=== PATIENT | female | born 1965 | race Asian ===

== ENCOUNTER 2017-03-19 15:20 | Emergency (ER) | payer MEDICAID ==
[~2017-03-19] VITALS: Ht 160 cm; Wt 64.4 kg
[2017-03-19 16:22] LABS: Basophils # (auto) 0.1 uL; Basophils % (auto) 0.5 % (0.0-2.0); Eosinophils # (auto) 0.3 uL; Eosinophils % (auto) 2.6 % (0.0-7.0); Hematocrit 41.5 % (36.0-46.0); Hemoglobin 13.7 g/dL (12.2-16.2); Lymphocytes # (auto) 2.2 uL; Lymphocytes % (auto) 18.4 % (10.0-50.0); Mean Corpuscular Hemoglobin 28.8 pg (28.0-32.0); Mean Corpuscular Volume 87.3 fL (80.0-100.0); Mean Platelet Volume 7.4 fL (6.9-10.8); Monocytes # (auto) 0.4 uL; Monocytes % (auto) 3.2 % (0.0-12.0); Neutrophils # (auto) 8.9 uL; Neutrophils % (auto) 75.3 % (37.0-80.0); Nucleated Red Blood Cells % 0.2 %; Platelet Count (auto) 293 10^3/uL (140-450); Red Cell Distribution Width 13.8 % (11.8-14.3); White Blood Cell 11.8 10^3/uL (4.4-10.8)
[2017-03-19 16:45] LABS: Albumin 4.2 g/dL (3.4-5.0); BUN/Creatinine Ratio 23.9; Bilirubin, Total 0.5 mg/dL (0.2-1.0); Calcium 8.9 mg/dL (8.5-10.1); Potassium 3.3 mmol/L (3.5-5.1); Total Protein 8.2 g/dL (6.4-8.2)
[2017-03-19] MEDS ORDERED: PROMETHAZINE HCL 25 MG/ML 1ML IV ONE (20:45)
[2017-03-19] MEDS ORDERED: POTASSIUM CHL 20 Meq TABLET PO ONE (22:30)
[2017-03-19 22:42] VITALS: BP 96/89
== END 2017-03-19 22:49 | disposition home or self-care (01) ==
LOC: ER 15:33
DX: K52.9 Noninfective gastroenteritis and colitis, unspecified (principal)
CPT/HCPCS: 36415; 80053; 85025; 96374; 99284; J2550

== ENCOUNTER 2020-08-01 08:50 | Emergency (ER) | payer MEDICAID ==
[~2020-08-01] VITALS: Ht 154.9 cm; Wt 63.5 kg
[2020-08-01 10:36] VITALS: BP 113/73
== END 2020-08-01 10:40 | disposition home or self-care (01) ==
LOC: ER 08:50
DX: R51.9 Headache, unspecified (principal); I10 Essential (primary) hypertension; Z77.22 Contact with and (suspected) exposure to environmental tobacco smoke (acute) (chronic)
CPT/HCPCS: 70450; 93005

== ENCOUNTER 2021-01-10 11:29 | Emergency (ER) | payer MEDICAID ==
[~2021-01-10] VITALS: Ht 160 cm; Wt 65.3 kg
[2021-01-10 12:13] VITALS: BP 132/90
== END 2021-01-10 12:41 | disposition home or self-care (01) ==
LOC: ER 11:29
DX: G44.209 Tension-type headache, unspecified, not intractable (principal); E78.5 Hyperlipidemia, unspecified; I10 Essential (primary) hypertension
CPT/HCPCS: 70450

== ENCOUNTER 2024-07-10 08:10 | Inpatient (IN) | payer MEDICAID ==
[~2024-07-10] VITALS: Ht 160 cm; Wt 69.3 kg
[2024-07-10] MEDS: METOCLOPRAMIDE HCL 5MG/ml INJ 2ml VIAL IV ONE (08:30)
--- NOTE | 2024-07-10 08:48 | DVH ---
INDICATION: left arm tingling TECHNIQUE: Frontal view of the chest. COMPARISON: None FINDINGS: . The heart and mediastinal contours are grossly unremarkable. There is no evidence of pleural disea se. The lungs are clear. The bony structures of the chest are intact without fracture. IMPRESSION: 1. No evidence of acute disease.
--- NOTE | 2024-07-10 08:51 | DVH ---
EXAM: CT HEAD WITHOUT CONTRAST INDICATION: Left arm tingling TECHNIQUE: CT of the head without intravenous contrast. Coronal and sagittal reformatted images are s ubmitted. Radiation Dose : 1. Head: CT Dose: CTDI volume is 55.19 mGy. Dose-length product is 977.33 mGy*cm The dose indicators for CT are the volume Computed Tomography (CT) Dose Index (CTDIvol) and the Dose Length Product (DLP), and are measured in units of mGy and mGy-cm, respectively. These indicators are not patient dose, but values generated from the CT scanner acquisition factors. The report includes radiation exposure data for exposures received during this examination. All CT scans at this medical facility are performed using dose modulation techniques as appropriate to a performed exam including the following: Automated exposure control was utilized; adjustment of the MA and/or KV according to patient size; and use of iterative reconstruction technique. COMPARISON: HEAD WITHOUT CONTRAST on DOS: 01/10/21 FINDINGS: There is no evidence of acute intracranial hemorrhage, extra-axial collection, mass effect, midline s hift, herniation or hydrocephalus. The ventricles, sulci and cisterns are age appropriate. The rose-white differentiation is intact. The visualized paranasal sinuses and mastoid air cells are clear. No depressed calvarial fracture. The surrounding soft tissues are unremarkable. IMPRESSION: 1. No evidence of acute intracranial abnormality.
--- NOTE | 2024-07-10 08:55 | ED.PDOC ---
HPI (NEURO) HPI Comments 59 y.o female with PMHx of HTN and hyperlipidemia, presents to the ED for a chief complaint of left sided numbness associated with a left sided headache that started 2 days ago. Patient describes headache as a burning aching sensation that is constant, non radiating and has no alleviating factors. Patient reports similar symptoms about 2 months ago but never followed up with PCP. Patient denies any tingling sensation, facial droops, nausea, vomiting, diarrhea, confusion, difficult speech, unsteady gait, vision changes, SOB or chest pain. Chief Complaint: Headache Time Seen by MD: 08:15 Primary Care Provider: ALEM Reviewed Notes: Nurses Notes, Medications, Allergies Information Source: Patient Mode of Arrival: Ambulatory Severity: Moderate Headache Severity: Moderate Timing: Days (2) Duration: Since onset Headache Quality: Aching Headache Location: Other (left sided ) Onset: At rest Circumstances: Spontaneous Symptoms: Numbness History of: Hypertension Modifying factors: Nothing Associated Signs and Symptoms: Headache, Numbness Past Medical History PAST MEDICAL HISTORY: High Lipids, HTN Surgical History: Denies all surgeries BRAND RECORDER History: Denies all BRAND RECORDER Hx Family History Family History: Reviewed,noncontributory to illness Social History Smoker: Secondhand Alcohol: Denies ETOH Use Drugs: Denies Drug Use Lives In: Home Constitutional: denies: chills, diaphoresis, fatigue, fever, malaise, sweats, weakness, others EENTM: denies: blurred vision, double vision, ear bleeding, ear discharge, ear drainage, ear pain, ear ringing, eye pain, eye redness, hearing loss, mouth pain, mouth swelling, nasal discharge, nose bleeding, nose congestion, nose pain, photophobia, tearing, throat pain, throat swelling, voice changes, others Respiratory: denies: cough, hemoptysis, orthopnea, SOB at rest, shortness of breath, SOB with excertion, stridor, wheezing, others Cardiovascular: denies: chest pain, dizzy spells, diaphoresis, Dyspnea on exert ion, edema, irregular heart beat, left arm pain, lightheadedness, palpitations, PND, syncope, others Gastrointestinal: denies: abdomen distended, abdominal pain, blood streaked bowels, constipated, diarrhea, dysphagia, difficulty swallowing, hematemesis, melena, nausea, poor appetite, poor fluid intake, rectal bleeding, rectal pain, vomiting, others Genitourinary: denies: abnormal vagina bleeding, burning, dyspareunia, dysuria, flank pain, frequency, hematuria, incontinence, pain, , vagina discharge, urgency, others Neurological: reports: headache, left sided numbness; denies: dizziness, fainting, left sided weakness, numbness, paresthesia, pre-existing deficit, right sided numbness, right sided weakness, seizure, speech problems, tingling, tremors, weakness, others Musculoskeletal: denies: back pain, gout, joint pain, joint swelling, muscle pain, muscle stiffness, neck pain, others Integumetry: denies: bruises, change in color, change in hair/nails, dryness, laceration, lesions, lumps, rash, wounds, others Allergic/Immunocompromised: denies: Difficulty Healing, Frequent Infections, Hives, Itching, others Hematologic/Lymphatic: denies: anemia, blood clots, easy bleeding, easy bruising, swollen glands, others Endocrine: denies: excessive hunger, excessive sweating, excessive thirst, excessive urination, flushing, intolerance to cold, intolerance to heat, unexplained weight gain, unexplained weight loss, others Psychiatric: denies: anxiety, bipolar disorder, depression, hopeless, panic disorder, schizophrenia, sleepless, suicidal, others All Other Systems: Reviewed and Negative Physical Exam General Appearance: No Apparent Distress, Normal HEENT: NOT DONE Neck: Normal Inspection Respiratory: No Accessory Muscle Use, No Respiratory Distress, Normal Breath Sounds Cardiovascular: Normal Peripheral Pulses, Regular Rate/Rhythm Breast Exam: Deferred Gastrointestinal: NOT DONE Genitalia: Deferred Pelvic: Deferred Rectal: Deferred Extremities: Normal inspection Neurologic: Alert, Normal Affect, R/L Numbness (left sided arm and leg ), Sensory Deficit (left sided arm and leg ) Cerebellar Function: Normal Reflexes: NOT DONE Skin: Dry, Normal Color Lymphatic: NOT DONE Was a procedure done? Was a procedure done?: No Differential Diagnosis (SZ) Seizure: N/A CVA: CVA, Electrolyte Imbalance, TIA Headache: Cluster, Migraine, Subarachnoid Hemorrhage, Trigeminal Neuralgia X-Ray, Labs, Meds, VS Vital Signs Date Time Temp Pulse Resp B/P (MAP) Pulse Ox O2 Delivery O2 Flow Rate FiO2 07/10/24 08:20 70 07/10/24 08:13 98.0 70 20 116/70 (85) 95 98.0 Lab Test 07/10/24 08:44 07/10/24 08:23 07/10/24 08:17 Range/Units White Blood Count 6.6 4.4-10.8 10^3/uL Red Blood Count 4.72 4.0-5.20 10^6/uL Hemoglobin 14.1 12.2-16.2 g/dL Hematocrit 42.0 36.0-46.0 % Mean Corpuscular Volume 89.0 80.0-100.0 fL Mean Corpuscular Hemoglobin 29.9 28.0-32.0 pg Mean Corpuscular Hemoglobin Concent 33.5 32.0-36.0 g/dL Red Cell Distribution Width 13.6 11.8-14.3 % Platelet Count 275 140-450 10^3/uL Mean Platelet Volume 7.6 6.9-10.8 fL Neutrophils (%) (Auto) 56.9 37.0-80.0 % Lymphocytes (%) (Auto) 34.2 10.0-50.0 % Monocytes (%) (Auto) 5.9 0.0-12.0 % Eosinophils (%) (Auto) 2.1 0.0-7.0 % Basophils (%) (Auto) 0.9 0.0-2.0 % Neutrophils # (Auto) 3.7 1.6-8.6 10 ^3/uL Lymphocytes # (Auto) 2.2 0.4-5.4 10 ^3/uL Monocytes # (Auto) 0.4 0-1.3 10 ^3/uL Eosinophils # (Auto) 0.1 0-0.8 10 ^3/uL Basophils # (Auto) 0.1 0-0.2 10 ^3/uL Nucleated Red Blood Cells 0.1 % Sodium Level 140 136-145 mmol/L Potassium Level 3.6 3.5-5.1 mmol/L Chloride Level 103 98-107 mmol/L Carbon Dioxide Level 29 20-31 mmol/L Anion Gap 8 5-15 Blood Urea Nitrogen 15 9-23 mg/dL Creatinine 0.79 0.550-1.02 mg/dL Glomerular Filtration Rate Calc 85 >90 mL/min BUN/Creatinine Ratio 19.0 10.0-20.0 Serum Glucose 116 H 74-106 mg/dL Calcium Level 9.8 8.7-10.4 mg/dL Troponin I High Sensitivity < 3 L </=34 ng/L Urine Color Light-yellow Yellow Urine Clarity Clear Clear Urine pH 7.0 5.0-9.0 Urine Specific [place] 1.013 1.001-1.035 Urine Protein Negative Negative Urine Ketones Negative Negative Urine Blood Trace H Negative /uL Urine Nitrite Negative Negative Urine Bilirubin Negative Negative Urine Urobilinogen Normal Negative mg/dL Urine Leukocyte Esterase 1+ Negative /uL Urine RBC 1 0 - 4 /hpf Urine Microscopic WBC 4 0-5 /HPF Urine Squamous Epithelial Cells Few <5 /hpf Urine Bacteria Few H None Seen /hpf Urine Mucus Few None Seen Urine Yeast (Budding) Occasional None Seen /hpf Urine Glucose Normal Normal mg/dL POC Glucose 130 H 70-106 mg/dl EXAM: CT HEAD WITHOUT CONTRAST INDICATION: Left arm tingling TECHNIQUE: CT of the head without intravenous contrast. Coronal and sagittal reformatted images are submitted. Radiation Dose : 1. Head: CT Dose: CTDI volume is 55.19 mGy. Dose-length product is 977.33 mGy*cm The dose indicators for CT are the volume Computed Tomography (CT) Dose Index (CTDIvol) and the Dose Length Product (DLP), and are measured in units of mGy and mGy-cm, respectively. These indicators are not patient dose, but values generated from the CT scanner acquisition factors. The report includes radiation exposure data for exposures received during this examination. All CT scans at this medical facility are performed using dose modulation techniques as appropriate to a performed exam including the following: Automated exposure control was utilized; adjustment of the MA and/or KV according to patient size; and use of iterative reconstruction technique. COMPARISON: HEAD WITHOUT CONTRAST on DOS: 01/10/21 FINDINGS: There is no evidence of acute intracranial hemorrhage, extra-axial collection, mass effect, midline shift, herniation or hydrocephalus. The ventricles, sulci and cisterns are age appropriate. The rose-white differentiation is intact. The visualized paranasal sinuses and mastoid air cells are clear. No depressed calvarial fracture. The surrounding soft tissues are unremarkable. IMPRESSION: 1. No evidence of acute intracranial abnormality. INDICATION: left arm tingling TECHNIQUE: Frontal view of the chest. COMPARISON: None FINDINGS: . The heart and mediastinal contours are grossly unremarkable. There is no evidence of pleural disease. The lungs are clear. The bony structures of the chest are intact without fracture. IMPRESSION: 1. No evidence of acute disease. Time of 1ST Reevaluation: 08:50 Reevaluation 1ST: Unchanged Patient Education/Counseling: Diagnosis, Treatment, Prognosis Family Education/Counseling: No Family Present Departure 1 Departure Time of Disposition: 09:46 (Patient with left-sided facial and arm numbness tingling. Patient is out of the window for any acute intervention. We will admit patient for further workup and expert consultation) Impression: Primary Impression: Numbness and tingling of left side of face Additional Impression: Numbness and tingling of left arm and leg Disposition: 09 ADMITTED INPATIENT Admit to: Med Surg Condition: Serious e-Prescriptions No Active Prescriptions or Reported Meds Critical Care Note Critical Care Time?: Yes Critical care comment: Concern for CVA Authorized and Performed by: Lia Phillips MD Total critical care time: Approximately 33 minutes Due to a high probability of clinically significant, life threatening deterioration, the patient required my highest level of preparedness to intervene emergently and I personally spent this critical care time directly and personally managing the patient. This critical care time included obtaining a history; examining the patient; pulse oximetry; ordering and review of studies; arranging urgent treatment with development of a management plan; evaluation of patient's response to treatment; frequent reassessment; and, discussions with other providers. This critical care time was performed to assess and manage the high probability of imminent, life-threatening deterioration that could result in multi-organ failure. It was exclusive of separately billable procedures and treating other patients and teaching time. Please see my other sections and the rest of the note for further information on patient assessment and treatment. Stability Stability form required: No I personally scribed for LIA PHILLIPS MD ([email or web address]) on 07/10/24 at 08:55. Electronically submitted by M[facility] Villatoro ([facility] I personally scribed for LIA PHILLIPS MD ([email or web address]) on 07/10/24 at 09:39. Electronically submitted by Mireya Villatoro ([facility] LIA PHILLIPS MD Jul 10, 2024 08:55
[2024-07-10 08:57] LABS: Basophils # (auto) 0.1 10 ^3/uL (0-0.2); Basophils % (auto) 0.9 % (0.0-2.0); Eosinophils # (auto) 0.1 10 ^3/uL (0-0.8); Eosinophils % (auto) 2.1 % (0.0-7.0); Hemoglobin 14.1 g/dL (12.2-16.2); Lymphocytes # (auto) 2.2 10 ^3/uL (0.4-5.4); Lymphocytes % (auto) 34.2 % (10.0-50.0); Mean Corpuscular Hemoglobin 29.9 pg (28.0-32.0); Mean Corpuscular Hgb Conc. 33.5 g/dL (32.0-36.0); Monocytes # (auto) 0.4 10 ^3/uL (0-1.3); Monocytes % (auto) 5.9 % (0.0-12.0); Neutrophils # (auto) 3.7 10 ^3/uL (1.6-8.6); Neutrophils % (auto) 56.9 % (37.0-80.0); Nucleated Red Blood Cells % 0.1 %; Platelet Count (auto) 275 10^3/uL (140-450); Red Blood Cells 4.72 10^6/uL (4.0-5.20); Red Cell Distribution Width 13.6 % (11.8-14.3); White Blood Cell 6.6 10^3/uL (4.4-10.8)
[2024-07-10 09:06] LABS: Chloride 103 mmol/L (98-107); Potassium 3.6 mmol/L (3.5-5.1); Sodium 140 mmol/L (136-145)
[2024-07-10 09:07] LABS: Anion Gap 8 (5-15); Carbon Dioxide 29 mmol/L (20-31)
[2024-07-10 09:08] LABS: Calcium 9.8 mg/dL (8.7-10.4)
[2024-07-10 09:13] LABS: Blood Urea Nitrogen 15 mg/dL (9-23); Glucose 116 mg/dL (74-106)
[2024-07-10 09:16] LABS: Urine Bacteria FEW /hpf (None Seen); Urine Blood TRACE /uL (Negative); Urine Budding Yeast OCCASIONAL /hpf (None Seen); Urine Clarity Clear (Clear); Urine Color Light-Yellow (Yellow); Urine Mucus FEW (None Seen); Urine Protein, UAD Negative (Negative); Urine Specific Gravity 1.013 (1.001-1.035); Urine Squamous Epithelial Cell FEW /hpf (<5); Urine Urobilinogen Normal (Negative); Urine WBC 4 /HPF (0-5)
[2024-07-10 09:50] VITALS: PULSE 61; RESP 17; O2SAT 99
[2024-07-10] MEDS: SODIUM CHLORIDE 0.9% 1,000 ML IV ONE (09:50)
[2024-07-10] MEDS ORDERED: AMLO1TAB21 PO (11:28)
[2024-07-10] MEDS ORDERED: ATOR20TA50 PO (11:28)
[2024-07-10] MEDS ORDERED: DOCUSATE SOD 100 MG CAP PO PRN ×2 (11:30→11:45)
[2024-07-10] MEDS ORDERED: NITROGLYCERIN 0.4 MG SL TAB SL PRN ×2 (11:30→11:45)
[2024-07-10] MEDS ORDERED: ACETAMINOPHEN 325 MG TAB PO PRN (11:30)
[2024-07-10] MEDS ORDERED: HYDROcodone-ACET 5/325MG TAB PO PRN ×2 (11:30→11:45)
[2024-07-10] MEDS ORDERED: MORPHINE SULFATE INJ 2 MG/ml SYRG IV PRN ×2 (11:30→11:45)
[2024-07-10] MEDS ORDERED: ONDANSETRON HCL 4 MG/2 ML VIAL IV PRN ×2 (11:30→11:45)
[2024-07-10] MEDS: ACETAMINOPHEN 325 MG TAB PO ONE (11:44)
--- NOTE | 2024-07-10 11:53 | DVHHP2 ---
History of Present Illness Reason for Visit: Left arm numbness and tingling History of Present Illness Bo Escoto is a 59-year-old female with past medical history of hypertension, and hyperlipidemia who comes in for numbness tingling to left side of head and left arm. Patient states she has been experiencing numbness and tingling to the left side of her face/head for about 2 months. She states she also began experiencing intermittent heaviness of her head. Then 2 days ago she began having left arm numbness and tingling that prompted her to come to the hospital. Denies any blurred vision, difficulty swallowing, talking, or hemiplegia. Cardiovascular: HTN, hyperipidemia Past Surgical History: Other (oophorectomy) Smoke: No ALCOHOL: none Drugs: None Lives: with Family Domestic Violence: Neg Review of Systems Constitutional: No: Fever, Chills, Sweats, Weakness, Malaise, Other Eyes: No: Pain, Vision change, Conjunctivae inflammation, Eyelid inflammation, Other, Redness ENT: No: Ear pain, Ear discharge, Nose pain, Nose discharge, Nose congestion, Mouth pain, Mouth swelling, Throat pain, Throat swelling, Other Respiratory: No: Cough, Dry, Shortness of breath, SOB with excertion, Wheezing, Hemoptysis, Pleuritic Pain, Sputum, Wheezing, Other Cardiovascular: No: Chest Pain, Palpitations, Orthopnea, Paroxysmal Noc. Dys pnea, Edema, Lt Headedness, Other Gastrointestinal: No: Nausea, Vomiting, Abdominal Pain, Diarrhea, Constipation, Melena, Hematochezia, Other Genitourinary: No Dysuria, No Frequency, No Incontinence, No Hematuria, No Retention, No Other Musculoskeletal: No: other, neck pain, shoulder pain, arm pain, back pain, hand pain, leg pain, foot pain Skin: No: Rash, Lesions, Jaundice, Bruising, Other Neurological: Numbness (left arm and left side of head); No: Weakness, Incoordination, Change in speech, Confusion, Seizures, Other Allergies: Coded Allergies: NO KNOWN ALLERGIES (Unverified , 11/14/12) Medications Current Medications Medications Dose Ordered Sig/Macario Route Start Time Stop Time Status Last Admin Dose Admin Sodium Chloride 10 ml Q8HR IV 07/10/24 14:00 UNV Acetaminophen/ Hydrocodone Bitart 1 tab Q4HP PRN PO 07/10/24 11:30 UNV Ondansetron HCl 4 mg Q4HP PRN IV 07/10/24 11:30 UNV Docusate Sodium 100 mg BIDPRN PRN PO 07/10/24 11:30 UNV Acetaminophen 650 mg Q6HP PRN PO 07/10/24 11:30 UNV Nitroglycerin 0.4 mg Q5MINP PRN SL 07/10/24 11:30 UNV Morphine Sulfate 2 mg Q30M PRN IV 07/10/24 11:30 UNV Atorvastatin Calcium 20 mg HS PO 07/10/24 22:00 UNV Patient Own Medication 1 tab DAILY PO 07/11/24 10:00 UNV Exam Vital Signs Vital Signs Date Time Temp Pulse Resp B/P (MAP) Pulse Ox O2 Delivery O2 Flow Rate FiO2 07/10/24 09:50 61 17 99 Room Air* 0 21 07/10/24 09:50 98.1 113/67 (82) 98.1 General Appearance: Alert, Oriented X3, Cooperative HEENT: Atraumatic Respiratory: Clear to auscultation, Normal air movement Cardiovascular: Regular rate, Normal S1, Normal S2 Abdominal: Normal bowel sounds, Soft, No tenderness Extremities: No clubbing, No cyanosis, No edema, Normal pulses, No tenderness/swelling Skin: No rashes, No breakdown, No significant lesion Neuro: Normal gait, Normal speech, Strength at 5/5 X4 ext, Normal tone, Other (C/O left sided headache, head feel heavy, numbness tingling to left side of head and left arm) Psych/Mental Status: Mental status NL, Mood NL Labs/Xrays Labs Test 07/10/24 08:44 07/10/24 08:23 07/10/24 08:17 Range/Units White Blood Count 6.6 4.4-10.8 10^3/uL Red Blood Count 4.72 4.0-5.20 10^6/uL Hemoglobin 14.1 12.2-16.2 g/dL Hematocrit 42.0 36.0-46.0 % Mean Corpuscular Volume 89.0 80.0-100.0 fL Mean Corpuscular Hemoglobin 29.9 28.0-32.0 pg Mean Corpuscular Hemoglobin Concent 33.5 32.0-36.0 g/dL Red Cell Distribution Width 13.6 11.8-14.3 % Platelet Count 275 140-450 10^3/uL Mean Platelet Volume 7.6 6.9-10.8 fL Neutrophils (%) (Auto) 56.9 37.0-80.0 % Lymphocytes (%) (Auto) 34.2 10.0-50.0 % Monocytes (%) (Auto) 5.9 0.0-12.0 % Eosinophils (%) (Auto) 2.1 0.0-7.0 % Basophils (%) (Auto) 0.9 0.0-2.0 % Neutrophils # (Auto) 3.7 1.6-8.6 10 ^3/uL Lymphocytes # (Auto) 2.2 0.4-5.4 10 ^3/uL Monocytes # (Auto) 0.4 0-1.3 10 ^3/uL Eosinophils # (Auto) 0.1 0-0.8 10 ^3/uL Basophils # (Auto) 0.1 0-0.2 10 ^3/uL Nucleated Red Blood Cells 0.1 % Sodium Level 140 136-145 mmol/L Potassium Level 3.6 3.5-5.1 mmol/L Chloride Level 103 98-107 mmol/L Carbon Dioxide Level 29 20-31 mmol/L Anion Gap 8 5-15 Blood Urea Nitrogen 15 9-23 mg/dL Creatinine 0.79 0.550-1.02 mg/dL Glomerular Filtration Rate Calc 85 >90 mL/min BUN/Creatinine Ratio 19.0 10.0-20.0 Serum Glucose 116 H 74-106 mg/dL Calcium Level 9.8 8.7-10.4 mg/dL Troponin I High Sensitivity < 3 L </=34 ng/L Urine Color Light-yellow Yellow Urine Clarity Clear Clear Urine pH 7.0 5.0-9.0 Urine Specific [place] 1.013 1.001-1.035 Urine Protein Negative Negative Urine Ketones Negative Negative Urine Blood Trace H Negative /uL Urine Nitrite Negative Negative Urine Bilirubin Negative Negative Urine Urobilinogen Normal Negative mg/dL Urine Leukocyte Esterase 1+ Negative /uL Urine RBC 1 0 - 4 /hpf Urine Microscopic WBC 4 0-5 /HPF Urine Squamous Epithelial Cells Few <5 /hpf Urine Bacteria Few H None Seen /hpf Urine Mucus Few None Seen Urine Yeast (Budding) Occasional None Seen /hpf Urine Glucose Normal Normal mg/dL POC Glucose 130 H 70-106 mg/dl EXAM: CT HEAD WITHOUT CONTRAST FINDINGS: There is no evidence of acute intracranial hemorrhage, extra-axial collection, mass effect, midline shift, herniation or hydrocephalus. The ventricles, sulci and cisterns are age appropriate. The rose-white differentiation is intact. The visualized paranasal sinuses and mastoid air cells are clear. No depressed calvarial fracture. The surrounding soft tissues are unremarkable. IMPRESSION: 1. No evidence of acute intracranial abnormality. Chest X-Ray FINDINGS: . The heart and mediastinal contours are grossly unremarkable. There is no evidence of pleural disease. The lungs are clear. The bony structures of the chest are intact without fracture. IMPRESSION: 1. No evidence of acute disease. Assessment/Plan Assessment/Plan Assessment: Numbness and tingling of left arm and leg, Numbness and tingling of left side of face, R/O Stroke, Hypertension, Hyperlipidemia, Plan: Admit to Tele, MRI of brain, ECHO, Consider Neurology consult, Home medications reconciled, Plan discussed with: Patient My Orders Orders - CADENCE ZAMORA Procedure Category Date Status Time Admit ADMIT 07/10/24 Transmitted 11:24 Code Status CODE 07/10/24 Transmitted 11:24 2 Gm Sodium Diet DIET 07/10/24 Transmitted Lunch Sodium Chloride Lock PHA 07/10/24 Logged (Saline Lock Ns) 14:00 Hydrocodone-Acet PHA 07/10/24 Logged 5/325mg Tab ([place] 11:30 Ondansetron Hcl PHA 07/10/24 Logged (Zofran) 11:30 Docusate Sodium PHA 07/10/24 Logged Capsule (Colace 11:30 Complete Blood Count LAB 07/11/24 Verified 04:00 Comprehensive LAB 07/11/24 Verified Metabolic Panel 04:00 Echo 2d Mode Cardiac US 07/10/24 Logged DOP 11:24 Condition: Serious BILL 07/10/24 In Process 11:24 Acetaminophen Tablet PHA 07/10/24 Logged (Tylenol Tablet) 11:30 Nitroglycerin PHA 07/10/24 Logged Sublingual (Ntrostat 11:30 Morphine Sulfate PHA 07/10/24 Logged Injection 11:30 Stat Ekg For Chest BILL 07/10/24 In Process Pain 11:24 Notify Of Changes BILL 07/10/24 In Process From Base 11:24 [employer] Operator For BILL 07/10/24 In Process 24 Hours 11:24 Emergency Dysrhythmia [facility] 07/10/24 In Process Protocol 11:24 Rhythm Strips Once [facility] 07/10/24 In Process Every Shift 11:24 Oxygen By Nasal RT 07/10/24 Transmitted Cannula 11:24 Atorvastatin (Lipitor) PHA 07/10/24 Logged 22:00 (Nf) Amlodipine PHA 07/11/24 Logged Besylate 10:00 Brain Head Wo Contrast MRI 07/10/24 Verified 11:28 Date of Service: Jul 10, 2024 Billing Provider: CADENCE ZAMORA Common Visit Codes: [id number] INP/OBS CARE (MOD) CADENCE ZAMORA Jul 10, 2024 11:53
[2024-07-10] MEDS ORDERED: SODIUM CHLOR 0.9% PF (SALINE LOCK) 10ML VIAL/SYR IV SCH (14:00)
[2024-07-10] MEDS: SODIUM CHLOR 0.9% PF (SALINE LOCK) 10ML VIAL/SYR IV SCH (14:04)
--- NOTE | 2024-07-10 14:38 | ECG ---
[facility] Test Date: 2024-07-10 Test Time: 08:20:29 Pat Name: RICHARD MOTA Department: ER Room: [address] [place] [address] Gender: F [employer] Bench: GP : 1965 Requested By: LIA PHILLIPS Order Number: [id number] Reading MD: Jeffry Montoya Measurements Intervals Sharon Rate: 70 P: 61 IA: 142 QRS: 75 QRSD: 113 T: 43 QT: 415 QTc: 448 Interpretive Statements Sinus rhythm Borderline intraventricular conduction delay Borderline T wave abnormalities Baseline wander in lead(s) V2,V5 Electronically Signed On 07-12-2024 21:00:10 PDT by Jeffry Montoya Please click the below link to view image of tracing.
--- NOTE | 2024-07-10 17:09 | DVH ---
PROCEDURE: MRI BRAIN HEAD WO CONTRAST INDICATION: Stroke EXAM DATE: 07/10/2024 04:26 PM COMPARISON: None TECHNIQUE: MRI of the brain without intravenous contrast. FINDINGS: Diffusion weighted images of the brain demonstrate no evidence of acute infarction. There is no evidence of acute intracranial hemorrhage, extra-axial collection, mass effect, midline s hift, herniation or hydrocephalus. The ventricles, sulci and cisterns appear age appropriate. The signal intensities of the brain parenchyma are within normal limits. There are no signal abnormalities on the susceptibility weighted sequences. The major vascular flow voids are present. The visualized paranasal sinuses and mastoid air cells are clear. The surrounding soft tissues and o sseous structures are unremarkable. IMPRESSION: 1. No evidence of acute infarction, intracranial hemorrhage, mass effect or hydrocephalus. HS:Y
[2024-07-10] MEDS: ATORVASTATIN 20 MG TAB PO SCH (22:00)
[2024-07-10 23:09] VITALS: BP 123/65; PULSE 65; RESP 20; TEMP 98; O2SAT 96
[2024-07-10 23:57] VITALS: BP 123/65; PULSE 65; RESP 20; TEMP 98; O2SAT 96
[2024-07-11] VITALS (8 sets, daily range): BP systolic 106–134; BP diastolic 60–85; PULSE 59–75; RESP 16–19; TEMP 97.6–98; O2SAT 94–100
[2024-07-11 06:56] LABS: Chloride 105 mmol/L (98-107); Potassium 3.5 mmol/L (3.5-5.1); Sodium 142 mmol/L (136-145)
[2024-07-11 06:57] LABS: Anion Gap 10 (5-15); Calcium 9.3 mg/dL (8.7-10.4); Carbon Dioxide 27 mmol/L (20-31)
[2024-07-11 07:00] LABS: Alkaline Phosphatase 73 U/L (46-116)
[2024-07-11 07:02] LABS: Aspartate Aminotransferase 17 U/L (13-40); BUN/Creatinine Ratio 23.7 (10.0-20.0); Blood Urea Nitrogen 18 mg/dL (9-23); Glucose 108 mg/dL (74-106)
[2024-07-11 07:03] LABS: Total Protein 7.1 g/dL (5.7-8.2)
[2024-07-11 07:04] LABS: Albumin 4.4 g/dL (3.2-4.8); Bilirubin, Total 0.7 mg/dL (0.2-1.0)
[2024-07-11 07:07] LABS: Basophils # (auto) 0.1 10 ^3/uL (0-0.2); Basophils % (auto) 0.7 % (0.0-2.0); Eosinophils # (auto) 0.2 10 ^3/uL (0-0.8); Eosinophils % (auto) 2.2 % (0.0-7.0); Lymphocytes # (auto) 2.5 10 ^3/uL (0.4-5.4); Lymphocytes % (auto) 33.1 % (10.0-50.0); Mean Corpuscular Hemoglobin 29.5 pg (28.0-32.0); Mean Corpuscular Hgb Conc. 33.4 g/dL (32.0-36.0); Mean Corpuscular Volume 88.6 fL (80.0-100.0); Monocytes # (auto) 0.4 10 ^3/uL (0-1.3); Monocytes % (auto) 5.6 % (0.0-12.0); Neutrophils # (auto) 4.3 10 ^3/uL (1.6-8.6); Neutrophils % (auto) 58.4 % (37.0-80.0); Nucleated Red Blood Cells % 0.1 %; Platelet Count (auto) 259 10^3/uL (140-450); Red Cell Distribution Width 13.5 % (11.8-14.3); White Blood Cell 7.4 10^3/uL (4.4-10.8)
[2024-07-11 07:17] LABS: Alanine Aminotransferase 17 U/L (7-40)
[2024-07-11 09:16] LABS: Cholesterol 198 mg/dL (< 200); LDL Cholesterol 135 mg/dL (< 100); Triglycerides 160 mg/dL (< 150)
[2024-07-11 09:17] LABS: HDL Cholesterol 50 mg/dL (40-59)
[2024-07-11] MEDS ORDERED: PATIENTS OWN MEDICATION (Amlodipine Besylate 1 TAB) PO SCH (10:00)
[2024-07-11] MEDS: CLOPIDOGREL BISULFATE 75 MG TAB PO SCH (10:00)
[2024-07-11] MEDS: ASPirin 81 mg TAB PO SCH (10:00)
[2024-07-11] MEDS: amLODIPine BESYLATE 5 MG TAB PO SCH (10:24)
--- NOTE | 2024-07-11 15:05 | DVHPNRES ---
Progress Note Date Seen: Jul 11, 2024 Resident Creating Document: DIDI PATEL RESIDENT Has the PT tested + for MRSA If YES, has PT been informed?: No Medical Necessity Reason Pt with a Central, PICC or Fol: No Subjective Review of Systems This is a 59-year-old female with past medical history of hypertension and hyperlipidemia who presented to the ED due to numbness and tingling sensation in the temporal aspect of the head and left arm. The patient states that recently she started feeling numbness sensation in the left temporal and occipital area of the head associated with the occasional numbness sensation of the left upper extremity and right lower extremity as well. Patient denied numbness or tingling sensation in the face and also denies any weakness, motor or sensory deficits at this time. Upon admission, CBC and BNP was grossly unremarkable, troponins came back negative and urinalysis came back positive suggesting UTI. Initial chest x-ray was grossly unremarkable. CT scan of the head was performed showing no evidence of acute intracranial abnormalities an MRI of the head ruled out ischemia or hemorrhage. Patient was admitted for further assessment and management of possible TIA/stroke. Patient seen and examined at bedside. Patient is alert and oriented in person, place and time. Patient is hemodynamically stable. Upon my examination the patient reports that occasionally she feels numbness sensation in the left temporal area of the head associated with the occasional left upper extremity tingling sensation. Patient denies any motor or sensory deficits at this time. Neurological exam was performed there is symmetric motor force on all four extremities and no sensory abnormalities in any of the extremities or face. Patient was started on aspirin 81 mg daily, clopidogrel 75 mg daily and atorvastatin 80 mg daily for possible TIA. Patient might be also coursing with a possible migraine with aura. We will place a neurology consult to get further assessment and management. ROS Constitutional: Denies weight loss, fever and chills. HEENT: Denies changes in vision and hearing. Respiratory: Denies shortness of breath and cough Cardiovascular: Denies chest discomfort or palpitations GI: Denies abdominal pain, nausea, vomiting and diarrhea. : Denies dysuria and urinary frequency. Musculoskeletal: Denies myalgias and joint pain Skin: Denies rash and pruritus. Neurological: Denies dizziness, headache, vision or hearing problems Objective vital signs Vital Sign Date Time Temp Pulse Resp B/P (MAP) Pulse Ox O2 Delivery O2 Flow Rate FiO2 4/15/25 11:36 97.7 62 17 117/60 (79) 98 97.7 07/10/24 23:57 Room Air* 0 21 Total Intake and Output 07/10/24 07/10/24 07/11/24 15:00 23:00 07:00 Intake Total 1000 ml 0 ml Balance 1000 ml 0 ml medications Current Medications Medications Dose Ordered Sig/Macario Route Start Time Stop Time Status Last Admin Dose Admin Acetaminophen 650 mg Q6HP PRN PO 07/10/24 11:30 Sodium Chloride 10 ml Q8HR IV 07/10/24 14:00 07/11/24 14:21 10 ML Ondansetron HCl 4 mg Q4HP PRN IV 07/10/24 11:45 Morphine Sulfate 2 mg Q30M PRN IV 07/10/24 11:45 Acetaminophen/ Hydrocodone Bitart 1 tab Q4HP PRN PO 07/10/24 11:45 Docusate Sodium 100 mg BIDPRN PRN PO 07/10/24 11:45 Nitroglycerin 0.4 mg Q5MINP PRN SL 07/10/24 11:45 Amlodipine Besylate 2.5 mg DAILY PO 07/11/24 10:00 07/11/24 10:24 2.5 MG Atorvastatin Calcium 80 mg HS PO 07/11/24 22:00 UNV Aspirin 81 mg DAILY PO 07/11/24 10:00 UNV Clopidogrel Bisulfate 75 mg DAILY PO 07/11/24 10:00 UNV Examination Physical Examination General: Patient alert and oriented in person, place and time. Patient following commands. HEENT: Normocephalic, atraumatic, moist mucous membranes Respiratory/pulmonary: Clear lungs bilaterally, no associated crackles or wheezes. Cardiovascular: Normal heart sounds S1 and S2 with no associated murmurs Abdomen: Abdomen nondistended, there is no pain to palpation in any of the abdominal quadrants, no palpable masses. Extremities: There is no peripheral edema present at the lower extremities. Peripheral Pulses: 3+ Radial (R). 3+ Radial (L). 3+ Dorsalis pedis (R). 3+ Dorsalis pedis(L) Skin: No rashes or pruritus, there is no sacral edema present at this time. Neurological: Intact cranial nerves with no focal neurologic deficits laboratory and microbiology Laboratory Tests 07/11/24 05:37 Test 07/11/24 05:37 Range/Units Serum Glucose 108 H 74-106 mg/dL Problem List/Assessment/Plan Problem List/Assessment/Plan Assessment/Plan Ruled out ischemic/hemorrhagic stroke Possible TIA Possible migraine with Aura -patient reports numbness and tingling sensation in the left temporal occipital region of the head associated with left upper extremity tingling -CT scan of the head showed no evidence of acute intracranial abnormalities -MRI of the brain showed no evidence of acute ischemic or hemorrhagic stroke -drugs came back negative -patient was started on aspirin 81 mg daily -start clopidogrel 75 mg daily for 21 days -start atorvastatin 80 mg daily -neurology consult was placed UTI -U/A suggestive of UTI -Start IV ceftriaxone Primary hypertension -start amlodipine 2.5 mg daily -monitor blood pressure closely Dyslipidemia -ordered lipid panel -start atorvastatin 80 mg daily Goals of care discussed with the patient at bedside for >25min, FULL CODE Plan discussed with Dr. Hammer Plan discussed with: Patient My Orders My Orders Orders - DIDI PATEL Procedure Category Date Status Time Drug Screen LAB 07/11/24 Logged 08:49 Atorvastatin (Lipitor) PHA 07/11/24 Logged 22:00 Aspirin Tablet PHA 07/11/24 Logged 10:00 Clopidogrel Bisulfate PHA 07/11/24 Logged (Plavix) 10:00 * Neurology Consult CONS 07/11/24 Verified 14:45 Date of Service: Jul 11, 2024 Billing Provider: REX HAMMER MD Common Visit Codes: [id number] INP/OBS CARE(HIGH) DIDI PATEL RESIDENT Jul 11, 2024 15:05 REX HAMMER MD Jul 11, 2024 15:49
[2024-07-11] MEDS: cefTRIAXone 1GM/50ML D5W 50 ML IV SCH (16:40)
[2024-07-11 17:22] LABS: Amphetamine Screen, Urine Neg (NEGATIVE); Barbiturate Scree,Urine Neg (NEGATIVE); Benzodiazephine Screen, Urine Neg (NEGATIVE); Cannabinoid Screen, Urine Neg (NEGATIVE); Cocaine Screen, Urine Neg (NEGATIVE); Opiate Scree,Urine Neg (NEGATIVE); Phencyclidine Screen, Urine Neg (NEGATIVE)
[2024-07-11] MEDS: ATORVASTATIN 20 MG TAB PO SCH (21:39)
--- NOTE | 2024-07-11 22:15 | DVHINCON2 ---
Date of service: Jul 11, [address] Peralta Reason for Consultation Possible TIA, possible migraine with aura History of Present Illness Ms. Escoto is a 59 years old right-handed female with a history of hypertension, dyslipidemia, she came to the [facility] on 07/10/2024 with a chief complaint of left-sided numbness. At this time, she was alert, fully oriented, but she was a poor historian. After long time spent with her, I obtained the following history Starting two days prior to this hospitalization, she has mild burning pain in the left side of her head, numbness in the left arm than leg, but she denies associated weakness. In the hospital, her problem has improved In [id number], she was one similar event, which resolved, without medical attention She was relates other similar events, but she was not able to further specify the symptoms She also reports heaviness in her head sometimes She did not seek medical attention till recently when she started to discuss with her family doctor and blood tests were obtained She denies a history of headache or head pain UDS, 07/11/2024: Negative Urinalysis, 07/10/2024: WBC: 4, urine leukocyte esterase: 1+ CBC, 07/11/2024: Unremarkable HGB A1c, 07/11/2024: 5.8 TG/HDL/LDL/HDL, 07/11/2024: 160/198/135/50 CMP, 07/11/2024: Unremarkable MRI head, 07/10/2024: No evidence of acute infarction, intracranial hemorrhage, mass effect or hydrocephalus. Past Medical History Hypertension, dyslipidemia Past Surgical History Oophorectomy Family History: FH: cancer G8 MOTHER G8 FATHER Family History Hypertension, diabetes, cancer, no headache Social History She has no history of smoking, alcohol or drug abuse Allergies: Coded Allergies: NO KNOWN ALLERGIES (Unverified , 11/14/12) Home Meds Reported Medications Atorvastatin Calcium (ATORVASTATIN CALCIUM) 20 Mg Tab, 20 MG PO HS 07/10/24 Amlodipine Besylate (Amlodipine Besylate) 2.5 Mg Tab, 1 TAB PO DAILY 07/10/24 Current Medications Current Medications Medications (Trade) Dose Ordered Sig/Macario Route PRN Reason Start Time Stop Time Status Last Admin Patient Own Medication 1 tab DAILY PO 07/11/24 10:00 07/10/24 11:36 DC Amlodipine Besylate (Norvasc Tablet) 2.5 mg DAILY PO 07/11/24 10:00 07/11/24 10:24 Atorvastatin Calcium (Lipitor) 80 mg HS PO 07/11/24 22:00 07/11/24 21:39 Aspirin 81 mg DAILY PO 07/11/24 10:00 Clopidogrel Bisulfate (Plavix) 75 mg DAILY PO 07/11/24 10:00 Ceftriaxone Sodium 50 ml @ 100 mls/hr DAILY@09 IV 07/11/24 15:15 07/11/24 16:40 Review of Systems As above, the other systems are negative Vital Signs Vital Signs Date Time Temp Pulse Resp B/P (MAP) Pulse Ox O2 Delivery O2 Flow Rate FiO2 07/11/24 21:00 97.9 68 17 117/79 (92) 96 97.9 07/10/24 23:57 Room Air* 0 21 Physical Exam GENERAL EXAM: General: the patient is well developed and nourished. No acute distress. HEENT: Normocephalic, neck is supple, no carotid bruits. No mass RESPIRATORY: Normal respiratory effort with symmetrical lung expansion. Lungs clear to auscultation. CARDIOVASCULAR: Regular rate and rhythm with no murmurs. S1, S2. ABDOMEN: Soft, nontender, normal bowel sound NEUROLOGICAL: MENTAL STATUS: Awake and alert. Oriented to person, place, time and general circumstances. Able to give personal history SPEECH, LANGUAGE, HIGHER CORTICAL FUNCTION: no aphasia or dysathria. CRANIAL NERVES: #2: Intact visual carlson to confrontation. The optic discs were sharp #3,4,6: Pupils are equal, round and reactive. EOMs full and conjugate. No nystagmus. #5: Facial sensation intact in all three divisions bilaterally. Mandibular strength intact. #7: Facial muscles symmetrical and strength intact. #8: Hearing grossly normal to voice. #9,10: Uvula and soft palate rise in the midline. Swallow and voice are normal. #11: Trapezius and sternomastoid strength intact bilaterally. #12: Tongue midline. No fasciculations or atrophy. SENSATION: Sensation to touch and pinprick is normal. MOTOR: Normal tone in the upper and lower extremity. Normal muscle bulk. No fasciculations. No abnormal movements or posturing. Muscle strength of the major groups in the upper extremities is 5/5. Muscle strength of the major groups in the lower extremities is 5/5. REFLEXES: Deep tendon reflexes are symmetrical. No pathological reflexes. CEREBELLAR/COORDINATION: Finger to nose and heel to choudhary are normal bilaterally. GAIT/STATION: deferred Labs/Diagnostic Data Labs Test 07/11/24 16:58 07/11/24 05:37 07/10/24 08:44 07/10/24 08:23 Range/Units Urine Opiates Screen Neg NEGATIVE Urine Fentanyl Screen Neg NEGATIVE Urine Barbiturates Screen Neg NEGATIVE Urine Phencyclidine Screen Neg NEGATIVE Urine Amphetamines Screen Neg NEGATIVE Urine Benzodiazepines Screen Neg NEGATIVE Urine Cocaine Screen Neg NEGATIVE Urine Cannabinoids Screen Neg NEGATIVE White Blood Count 7.4 4.4-10.8 10^3/uL Red Blood Count 4.40 4.0-5.20 10^6/uL Hemoglobin 13.0 12.2-16.2 g/dL Hematocrit 39.0 36.0-46.0 % Mean Corpuscular Volume 88.6 80.0-100.0 fL Mean Corpuscular Hemoglobin 29.5 28.0-32.0 pg Mean Corpuscular Hemoglobin Concent 33.4 32.0-36.0 g/dL Red Cell Distribution Width 13.5 11.8-14.3 % Platelet Count 259 140-450 10^3/uL Mean Platelet Volume 7.9 6.9-10.8 fL Neutrophils (%) (Auto) 58.4 37.0-80.0 % Lymphocytes (%) (Auto) 33.1 10.0-50.0 % Monocytes (%) (Auto) 5.6 0.0-12.0 % Eosinophils (%) (Auto) 2.2 0.0-7.0 % Basophils (%) (Auto) 0.7 0.0-2.0 % Neutrophils # (Auto) 4.3 1.6-8.6 10 ^3/uL Lymphocytes # (Auto) 2.5 0.4-5.4 10 ^3/uL Monocytes # (Auto) 0.4 0-1.3 10 ^3/uL Eosinophils # (Auto) 0.2 0-0.8 10 ^3/uL Basophils # (Auto) 0.1 0-0.2 10 ^3/uL Nucleated Red Blood Cells 0.1 % Sodium Level 142 136-145 mmol/L Potassium Level 3.5 3.5-5.1 mmol/L Chloride Level 105 98-107 mmol/L Carbon Dioxide Level 27 20-31 mmol/L Anion Gap 10 5-15 Blood Urea Nitrogen 18 9-23 mg/dL Creatinine 0.76 0.550-1.02 mg/dL Glomerular Filtration Rate Calc 89 >90 mL/min BUN/Creatinine Ratio 23.7 H 10.0-20.0 Serum Glucose 108 H 74-106 mg/dL Hemoglobin A1c 5.8 H <5.7 % A1C Calcium Level 9.3 8.7-10.4 mg/dL Total Bilirubin 0.7 0.2-1.0 mg/dL Aspartate Amino Transferase (AST) 17 13-40 U/L Alanine Aminotransferase (ALT) 17 7-40 U/L Alkaline Phosphatase 73 46-116 U/L Total Protein 7.1 5.7-8.2 g/dL Albumin 4.4 3.2-4.8 g/dL Triglycerides Level 160 H < 150 mg/dL Cholesterol Level 198 < 200 mg/dL LDL Cholesterol 135 H < 100 mg/dL HDL Cholesterol 50 40-59 mg/dL Troponin I High Sensitivity < 3 L </=34 ng/L Urine Color Light-yellow Yellow Urine Clarity Clear Clear Urine pH 7.0 5.0-9.0 Urine Specific [place] 1.013 1.001-1.035 Urine Protein Negative Negative Urine Ketones Negative Negative Urine Blood Trace H Negative /uL Urine Nitrite Negative Negative Urine Bilirubin Negative Negative Urine Urobilinogen Normal Negative mg/dL Urine Leukocyte Esterase 1+ Negative /uL Urine RBC 1 0 - 4 /hpf Urine Microscopic WBC 4 0-5 /HPF Urine Squamous Epithelial Cells Few <5 /hpf Urine Bacteria Few H None Seen /hpf Urine Mucus Few None Seen Urine Yeast (Budding) Occasional None Seen /hpf Urine Glucose Normal Normal mg/dL Test 07/10/24 08:17 Range/Units POC Glucose 130 H 70-106 mg/dl Assessment Left head pain, left paresthesia, MRI ruled out acute stroke/chronic stroke Rule out partial seizure Plan/Recommendation Monitoring Supportive treatment Telemetry EEG Antiplatelet agent is not recommended from neurologic point of view More recommendation per clinical course Prognosis: Poor This medical document was created using an electronic medical record system with [employer] system. Although this document has been carefully reviewed, there may still be some phonetic and typographical errors. These areas are purely typographical due to imperfections of the software programs, and do not reflect any compromise in the patient's medical care. Plan discussed with: Patient, Other CRISTÓBAL MURGUIA MD Jul 11, 2024 22:15
--- NOTE | 2024-07-11 22:46 | DVHSR ---
APPROVED REPORT EXAM: Two-dimensional and M-mode echocardiogram with Doppler and color Doppler. Mitral Valve MitralMitral Stenosis E/A ratio0.02D MVAcm2 LEFT VENTRICLE The left ventricle is normal size. There is normal left ventricular wall thickness. The left ventricle is normal in structure and function. Left ventricle systolic function is normal. The Ejection Fraction is 55-60%. No regional wall motion abnormalities noted. RIGHT VENTRICLE The right ventricle is normal size. There is normal right ventricular wall thickness. The right ventricular systolic function is normal. ATRIA The left atrium size is normal. The right atrium size is normal. The interatrial septum is intact with no evidence for an atrial septal defect. MITRAL VALVE The mitral valve is normal in structure and function. There is no evidence of mitral valve prolapse. There is no mitral valve stenosis. There is no mitral valve regurgitation noted. PULMONIC VALVE The pulmonary valve is normal in structure and function. There is no pulmonic valvular regurgitation. There is no pulmonic valvular stenosis. TRICUSPID VALVE The tricuspid valve is normal in structure and function. There is no tricuspid valve regurgitation noted. There is no tricuspid valve prolapse or vegetation. There is no tricuspid valve stenosis. AORTIC VALVE The aortic valve is normal in structure and function. No aortic regurgitation is present. There is no aortic valvular stenosis. There is no aortic valvular vegetation. GREAT VESSELS The aortic root is normal in size. PERICARDIAL EFFUSION There is a no pericardial effusion. Conclusion There is normal left ventricular wall thickness. The left ventricle is normal in structure and function. Left ventricle systolic function is normal. The Ejection Fraction is 55-60%. There is no gross valvular pathology There is a no pericardial effusion.
[2024-07-12 05:00] VITALS: BP 116/62; PULSE 55; RESP 17; TEMP 97.2; O2SAT 95
[2024-07-12 05:51] LABS: Basophils # (auto) 0.1 10 ^3/uL (0-0.2); Basophils % (auto) 0.8 % (0.0-2.0); Eosinophils # (auto) 0.2 10 ^3/uL (0-0.8); Eosinophils % (auto) 2.6 % (0.0-7.0); Hematocrit 41.1 % (36.0-46.0); Hemoglobin 13.4 g/dL (12.2-16.2); Lymphocytes # (auto) 2.4 10 ^3/uL (0.4-5.4); Lymphocytes % (auto) 37.2 % (10.0-50.0); Mean Corpuscular Hemoglobin 29.1 pg (28.0-32.0); Mean Corpuscular Hgb Conc. 32.6 g/dL (32.0-36.0); Mean Corpuscular Volume 89.2 fL (80.0-100.0); Monocytes # (auto) 0.4 10 ^3/uL (0-1.3); Monocytes % (auto) 5.9 % (0.0-12.0); Neutrophils # (auto) 3.4 10 ^3/uL (1.6-8.6); Neutrophils % (auto) 53.5 % (37.0-80.0); Platelet Count (auto) 256 10^3/uL (140-450); Red Cell Distribution Width 13.4 % (11.8-14.3); White Blood Cell 6.4 10^3/uL (4.4-10.8)
[2024-07-12 06:03] LABS: Chloride 104 mmol/L (98-107); Potassium 3.7 mmol/L (3.5-5.1); Sodium 141 mmol/L (136-145)
[2024-07-12 06:04] LABS: Anion Gap 10 (5-15); Calcium 9.7 mg/dL (8.7-10.4); Carbon Dioxide 27 mmol/L (20-31)
[2024-07-12 06:09] LABS: BUN/Creatinine Ratio 19.5 (10.0-20.0); Blood Urea Nitrogen 15 mg/dL (9-23); Glucose 104 mg/dL (74-106)
[2024-07-12 08:00] VITALS: PULSE 60; PULSE 64; RESP 16; O2SAT 98
[2024-07-12] MEDS ORDERED: ATOR-47 PO (08:45)
[2024-07-12] MEDS ORDERED: NITR-52 PO (08:46)
[2024-07-12 09:00] VITALS: BP 117/70; PULSE 64; RESP 16; TEMP 98; O2SAT 98
[2024-07-12 10:49] LABS: Hepatitis B Surface Antigen Negative (Negative); Hepatitis C Antibody Negative (Negative)
[2024-07-12 11:48] VITALS: BP 117/70; PULSE 64; RESP 16; TEMP 98; O2SAT 98
--- NOTE | 2024-07-12 12:03 | DVH ---
Carotid Duplex Date: 07/12/2024 10:11 AM Clinical History: r/o stenosis Comparison: None Technique: Duplex Doppler evaluation of the extracranial carotid and vertebral arteries including col or Doppler and spectral/pulsed waveform analysis was performed. Findings: Velocities and ratios within normal limits. IMPRESSION: No hemodynamically significant stenosis noted in the right carotid system. No hemodynamically significant stenosis noted in the left carotid system. Reference: Radiology 2003; [id number]
--- NOTE | 2024-07-12 13:18 | DVHDSRES ---
Discharge Summary Date of Admission Resident Creating Document: DIDI PATEL RESIDENT Jul 10, 2024 at 11:24 Date of Discharge: Jul 12, 2024 Admitting Diagnosis Numbness and tingling sensation of the left temporal area of the head. Wounds: No wounds present at this time Labs/Diagnostic Data: Laboratory Results Test 07/12/24 05:17 07/11/24 16:58 07/11/24 05:37 07/10/24 08:44 White Blood Count 6.4 10^3/uL (4.4-10.8) Red Blood Count 4.60 10^6/uL (4.0-5.20) Hemoglobin 13.4 g/dL (12.2-16.2) Hematocrit 41.1 % (36.0-46.0) Mean Corpuscular Volume 89.2 fL (80.0-100.0) Mean Corpuscular Hemoglobin 29.1 pg (28.0-32.0) Mean Corpuscular Hemoglobin Concent 32.6 g/dL (32.0-36.0) Red Cell Distribution Width 13.4 % (11.8-14.3) Platelet Count 256 10^3/uL (140-450) Mean Platelet Volume 7.8 fL (6.9-10.8) Neutrophils (%) (Auto) 53.5 % (37.0-80.0) Lymphocytes (%) (Auto) 37.2 % (10.0-50.0) Monocytes (%) (Auto) 5.9 % (0.0-12.0) Eosinophils (%) (Auto) 2.6 % (0.0-7.0) Basophils (%) (Auto) 0.8 % (0.0-2.0) Neutrophils # (Auto) 3.4 10 ^3/uL (1.6-8.6) Lymphocytes # (Auto) 2.4 10 ^3/uL (0.4-5.4) Monocytes # (Auto) 0.4 10 ^3/uL (0-1.3) Eosinophils # (Auto) 0.2 10 ^3/uL (0-0.8) Basophils # (Auto) 0.1 10 ^3/uL (0-0.2) Nucleated Red Blood Cells 0.0 % Sodium Level 141 mmol/L (136-145) Potassium Level 3.7 mmol/L (3.5-5.1) Chloride Level 104 mmol/L (98-107) Carbon Dioxide Level 27 mmol/L (20-31) Anion Gap 10 (5-15) Blood Urea Nitrogen 15 mg/dL (9-23) Creatinine 0.77 mg/dL (0.550-1.02) Glomerular Filtration Rate Calc 88 mL/min (>90) BUN/Creatinine Ratio 19.5 (10.0-20.0) Serum Glucose 104 mg/dL (74-106) Calcium Level 9.7 mg/dL (8.7-10.4) Urine Opiates Screen Neg (NEGATIVE) Urine Fentanyl Screen Neg (NEGATIVE) Urine Barbiturates Screen Neg (NEGATIVE) Urine Phencyclidine Screen Neg (NEGATIVE) Urine Amphetamines Screen Neg (NEGATIVE) Urine Benzodiazepines Screen Neg (NEGATIVE) Urine Cocaine Screen Neg (NEGATIVE) Urine Cannabinoids Screen Neg (NEGATIVE) Hemoglobin A1c 5.8 % A1C (<5.7) Total Bilirubin 0.7 mg/dL (0.2-1.0) Aspartate Amino Transferase (AST) 17 U/L (13-40) Alanine Aminotransferase (ALT) 17 U/L (7-40) Alkaline Phosphatase 73 U/L (46-116) Total Protein 7.1 g/dL (5.7-8.2) Albumin 4.4 g/dL (3.2-4.8) Triglycerides Level 160 mg/dL (< 150) Cholesterol Level 198 mg/dL (< 200) LDL Cholesterol 135 mg/dL (< 100) HDL Cholesterol 50 mg/dL (40-59) Hepatitis B Surface Antigen Negative (Negative) Hepatitis C Antibody Negative (Negative) Troponin I High Sensitivity < 3 ng/L (</=34) Test 07/10/24 08:23 07/10/24 08:17 Urine Color Light-yellow (Yellow) Urine Clarity Clear (Clear) Urine pH 7.0 (5.0-9.0) Urine Specific Wyatt 1.013 (1.001-1.035) Urine Protein Negative (Negative) Urine Ketones Negative (Negative) Urine Blood Trace /uL (Negative) Urine Nitrite Negative (Negative) Urine Bilirubin Negative (Negative) Urine Urobilinogen Normal mg/dL (Negative) Urine Leukocyte Esterase 1+ /uL (Negative) Urine RBC 1 /hpf (0 - 4) Urine Microscopic WBC 4 /HPF (0-5) Urine Squamous Epithelial Cells Few /hpf (<5) Urine Bacteria Few /hpf (None Seen) Urine Mucus Few (None Seen) Urine Yeast (Budding) Occasional /hpf (None Urine Glucose Normal mg/dL (Normal) POC Glucose 130 mg/dl (70-106) Other Laboratory Tests 07/12/24 05:17 Brief Hx & Hospital Course: This is a 59-year-old female with past medical history of hypertension and hyperlipidemia who presented to the ED due to numbness and tingling sensation in the temporal aspect of the head and left arm. The patient states that recently she started feeling numbness sensation in the left temporal and occipital area of the head associated with the occasional numbness sensation of the left upper extremity and right lower extremity as well. Patient denied numbness or tingling sensation in the face and also denies any weakness, motor or sensory deficits at this time. Upon admission, CBC and BNP was grossly unremarkable, troponins came back negative and urinalysis came back positive suggesting UTI. Initial chest x-ray was grossly unremarkable. CT scan of the head was performed showing no evidence of acute intracranial abnormalities an MRI of the head ruled out ischemia or hemorrhage. We performed a carotid Doppler ultrasound which showed no hemodynamic stenosis in either right or left systems. Neurology was consulted and assessed the patient. Neurology believes this could be due to hemiplegic migraine or some type of partial seizure. Due to chronicity of the symptoms they recommended not to treat with antiplatelet therapy because he is less likely to be a TIA or stroke. We explained to the patient that there was no stroke and we will discharge the patient home on nitrofurantoin 100 mg b.i.d. for five days for the UTI and atorvastatin 80 mg daily due to the dyslipidemia. Patient agreed and understands the plan. ROS Constitutional: Denies weight loss, fever and chills. HEENT: Denies changes in vision and hearing. Respiratory: Denies shortness of breath and cough Cardiovascular: Denies chest discomfort or palpitations GI: Denies abdominal pain, nausea, vomiting and diarrhea. : Denies dysuria and urinary frequency. Musculoskeletal: Denies myalgias and joint pain Skin: Denies rash and pruritus. Neurological: Denies dizziness, headache, vision or hearing problems Physical Examination General: Patient alert and oriented in person, place and time. Patient following commands. HEENT: Normocephalic, atraumatic, moist mucous membranes Respiratory/pulmonary: Clear lungs bilaterally, no associated crackles or wheezes. Cardiovascular: Normal heart sounds S1 and S2 with no associated murmurs Abdomen: Abdomen nondistended, there is no pain to palpation in any of the abdominal quadrants, no palpable masses. Extremities: There is no peripheral edema present at the lower extremities. Peripheral Pulses: 3+ Radial (R). 3+ Radial (L). 3+ Dorsalis pedis (R). 3+ Dorsalis pedis(L) Skin: No rashes or pruritus, there is no sacral edema present at this time. Neurological: Intact cranial nerves with no focal neurologic deficits Consults/Reason for consult Neurology for further assessment. Operations or Procedures INDICATION: left arm tingling TECHNIQUE: Frontal view of the chest. COMPARISON: None FINDINGS: . The heart and mediastinal contours are grossly unremarkable. There is no evidence of pleural disease. The lungs are clear. The bony structures of the chest are intact without fracture. IMPRESSION: 1. No evidence of acute disease. EXAM: CT HEAD WITHOUT CONTRAST INDICATION: Left arm tingling TECHNIQUE: CT of the head without intravenous contrast. Coronal and sagittal reformatted images are submitted. Radiation Dose : 1. Head: CT Dose: CTDI volume is 55.19 mGy. Dose-length product is 977.33 mGy*cm The dose indicators for CT are the volume Computed Tomography (CT) Dose Index (CTDIvol) and the Dose Length Product (DLP), and are measured in units of mGy and mGy-cm, respectively. These indicators are not patient dose, but values generated from the CT scanner acquisition factors. The report includes radiation exposure data for exposures received during this examination. All CT scans at this medical facility are performed using dose modulation techniques as appropriate to a performed exam including the following: Automated exposure control was utilized; adjustment of the MA and/or KV according to patient size; and use of iterative reconstruction technique. COMPARISON: HEAD WITHOUT CONTRAST on DOS: 01/10/21 FINDINGS: There is no evidence of acute intracranial hemorrhage, extra-axial collection, mass effect, midline shift, herniation or hydrocephalus. The ventricles, sulci and cisterns are age appropriate. The rose-white differentiation is intact. The visualized paranasal sinuses and mastoid air cells are clear. No depressed calvarial fracture. The surrounding soft tissues are unremarkable. IMPRESSION: 1. No evidence of acute intracranial abnormality. PROCEDURE: MRI BRAIN HEAD WO CONTRAST INDICATION: Stroke EXAM DATE: 07/10/2024 04:26 PM COMPARISON: None TECHNIQUE: MRI of the brain without intravenous contrast. FINDINGS: Diffusion weighted images of the brain demonstrate no evidence of acute infarction. There is no evidence of acute intracranial hemorrhage, extra-axial collection, mass effect, midline shift, herniation or hydrocephalus. The ventricles, sulci and cisterns appear age appropriate. The signal intensities of the brain parenchyma are within normal limits. There are no signal abnormalities on the susceptibility weighted sequences. The major vascular flow voids are present. The visualized paranasal sinuses and mastoid air cells are clear. The surrounding soft tissues and osseous structures are unremarkable. IMPRESSION: 1. No evidence of acute infarction, intracranial hemorrhage, mass effect or hydrocephalus. Carotid Duplex Date: 07/12/2024 10:11 AM Clinical History: r/o stenosis Comparison: None Technique: Duplex Doppler evaluation of the extracranial carotid and vertebral arteries including color Doppler and spectral/pulsed waveform analysis was performed. Findings: Velocities and ratios within normal limits. IMPRESSION: No hemodynamically significant stenosis noted in the right carotid system. No hemodynamically significant stenosis noted in the left carotid system. Condition at Discharge: Stable Final Diagnosis/Problems List RULED OUT ISCHEMIC/HEMORRHAGIC STROKE POSSIBLE TIA POSSIBLE HEMIPLEGIC MIGRAINE URINARY TRACT INFECTION PRIMARY HYPERTENSION, DYSLIPIDEMIA Discharge Disposition: Home Discharge Instruct/Medications Diet: Regular Activity: No Restrictions, As Tolerated Follow Up/Referral: F/U with her PCP in 1 week Medications: Nitrofurantoin 100mg BID for 5 days Atorvastatin 80mg daily Discharge Statement: "Patient was advised to return to the ER or call 911 if any headaches, dizziness, shortness of breath, chest pain, abdominal pain, bleeding, fevers, or worsening of medical condition. Patient was counseled about treatment plan, medications, possible side effects, patientverbalized understanding. All questions were answered to the best of my ability. This discharge took greater then 30 minutes in planning, reviewing documentation, counseling the patient, and discussing with other team members." ASSESSMENT ASSESSMENT Assessment RULED OUT ISCHEMIC/HEMORRHAGIC STROKE POSSIBLE TIA POSSIBLE HEMIPLEGIC MIGRAINE URINARY TRACT INFECTION PRIMARY HYPERTENSION, DYSLIPIDEMIA Date of Service: Jul 12, 2024 Billing Provider: REX ROBBINS MD Common Visit Codes: 74158-RVS/OBS DISCH DAY >30min DIDI PATEL Jul 12, 2024 13:18 REX ROBBINS MD Jul 12, 2024 13:57
--- NOTE | 2024-07-12 21:11 | DVHEEG2 ---
Neurology EEG Procedural Note Procedural Note EXAM DATE: 07/12/2024 REFERRING DOCTOR: Dr. Murguia TECHNIQUE: Eighteen channels of EEG, 2 channels of EOG, and 1 channel of EKG were recorded using the International 10/20 system. CLINICAL DATA: The patient was referred for an EEG evaluation for the evidence of seizure disorder. MEDICATIONS: See the chart BACKGROUND ACTIVITY: While the patient was awake, the background activity consisted of well regulated 10 Hz rhythmic waveforms, symmetrically distributed over both posterior quadrants and was reactive to eye opening. ACTIVATION: Hyperventilation: Not done Photic Stimulation: Not done Sleep: Not seen IMPRESSION: This is a normal EEG. No focal, lateralized, or epileptiform features are noted. If clinically indicated to rule out a seizure disorder, recommend repeat EEG with sleep deprivation. The EKG channel showed a regular heart rate of 72/min [place] [address] CRISTÓBAL MURGUIA MD Jul 12, 2024 21:11
== END 2024-07-12 12:40 | disposition home or self-care (01) | DRG 47 ==
LOC: ER 08:10 → OVERFLOW 11:24 → ER 11:27 → TELE-EAST 07-11 14:48
PROVIDERS: ADMIT Internal Medicine; ATTEND Internal Medicine
DX: G45.9 Transient cerebral ischemic attack, unspecified (principal); G43.409 Hemiplegic migraine, not intractable, without status migrainosus; E78.5 Hyperlipidemia, unspecified; F17.200 Nicotine dependence, unspecified, uncomplicated; I10 Essential (primary) hypertension; R20.2 Paresthesia of skin; Z82.49 Family history of ischemic heart disease and other diseases of the circulatory system; Z83.3 Family history of diabetes mellitus; N39.0 Urinary tract infection, site not specified; G40.109 Localization-related (focal) (partial) symptomatic epilepsy and epileptic syndromes with simple partial seizures, not intractable, without status epilepticus
CPT/HCPCS: 36415; 70450; 70551; 71045; 80048; 80053; 80061; 80307; 81001; 82962; 83036; 84484; 85025; 86803; 87340; 93005; 93306; 93886; 95819; 96360; 99291; G0378